=== PATIENT | male | born 1955 | race American Indian/Alaskan Native ===

== ENCOUNTER 2017-03-16 22:37 | Emergency (ER) | payer MEDICARE ==
[2017-03-16] MEDS ORDERED: NORCO 5/325 PO ONE (22:48)
[2017-03-16 22:49] VITALS: BP 165/95
[2017-03-16] MEDS ORDERED: BOOSTRIX IM ONE (22:49)
--- NOTE | 2017-03-16 22:52 | Emergency Department Report ---
ED Fall HPI - General Stated Complaint: NECK PAIN/headache Time Seen by Provider: 03/16/17 22:47 Source: patient - History of Present Illness Initial Comments: 62 -year-old male with past medical history hypertension and coronary artery disease brought in by EMS for headache and neck pain. Patient states 3 hours prior to ED arrival, he had a ground-level fall secondary to mechanical fall- he tripped on a gate. Patient states when he fell he did land on his head and initially he had no headache or neck pain however hours later he developed dull pain that was constant and worse with movement of his neck, improved with keeping his neck still. Patient denies neurological deficits. Patient denies change in vision. Patient does endorse mild headache and tenderness where there is an abrasion on his forehead. Patient has no pain in his upper or lower extremities. MD Complaint: fall -: Sudden, hour(s) (3) Fall From: standing When Fall Occurred: 1-3 hours [employer] Fall Witnessed: yes, by family Place Fall Occurred: street Loss of Consciousness: none Prolonged Down Time?: no Symptoms Prior to Fall: none Location: head, neck Severity scale (0 -10): 4 Quality: dull Context: tripped/slipped Associated Symptoms: headache, neck pain. denies: numbness, weakness, chest paint, shortness of breath, abdominal pain, hematuria, unable to walk, lightheaded, vertigo, confusion - Related Data Home Medications Medication Instructions Recorded Confirmed Last Taken Clopidogrel [Plavix] 75 mg PO QDAY 04/14/16 04/14/16 Unknown Lisinopril [Zestril TAB] 20 mg PO QDAY 04/14/16 04/14/16 Unknown Metoprolol Tartrate [Lopressor] 50 mg PO DAILY 04/14/16 04/14/16 Unknown Simvastatin [Zocor TAB] 20 mg PO QHS 04/14/16 04/14/16 Unknown Tamsulosin [Flomax] 0.4 mg PO QDAY 04/14/16 04/14/16 Unknown Previous Rx's Medication Instructions Recorded Last Taken Type Xarelto 20 mg PO QDAY #7 04/15/16 Unknown Rx glipiZIDE [Glucotrol] 10 mg PO BID #60 tablet 04/15/16 Unknown Rx Tamsulosin [Flomax] 0.4 mg PO QDAY #20 cap 03/17/17 Unknown Rx traMADol [Ultram] 50 mg PO Q6HR PRN #20 tablet 03/17/17 Unknown Rx Allergies Allergy/AdvReac Type Severity Reaction Status Date / Time metformin Allergy Headache Verified 06/28/15 02:39 ED Review of Systems ROS: Stated complaint: NECK PAIN/BLURRED VISION Other details as noted in HPI Constitutional: denies: chills, fever Eyes: denies: eye pain, eye discharge, vision change ENT: other (neck pain ). denies: ear pain, throat pain Respiratory: denies: cough, shortness of breath, wheezing Cardiovascular: denies: chest pain, palpitations Endocrine: no symptoms reported Gastrointestinal: denies: abdominal pain, nausea, diarrhea Genitourinary: denies: urgency, dysuria Musculoskeletal: denies: back pain, joint swelling, arthralgia Skin: other (abraison ). denies: rash, lesions Neurological: headache. denies: weakness, numbness, paresthesias, confusion, abnormal gait, vertigo Psychiatric: denies: anxiety, depression Hematological/Lymphatic: denies: easy bleeding, easy bruising ED Past Medical Hx - Past Medical History Hx Hypertension: Yes Hx Heart Attack/AMI: Yes Hx Congestive Heart Failure: Yes Hx Diabetes: Yes Hx Deep Vein Thrombosis: Yes Hx Asthma: Yes Hx COPD: Yes Hx HIV: No Additional medical history: Glaucoma, DVT Right Calf - Surgical History Hx Coronary Stent: Yes (for blood clot in heart valve) Additional Surgical History: Coronary stent 2 years ago, right leg surgery; right knee replacement and right hip replacement - Social History Smoking Status: Never Smoker - Medications Home Medications: Home Medications Medication Instructions Recorded Confirmed Last Taken Type Clopidogrel [Plavix] 75 mg PO QDAY 04/14/16 04/14/16 Unknown History Lisinopril [Zestril TAB] 20 mg PO QDAY 04/14/16 04/14/16 Unknown History Metoprolol Tartrate [Lopressor] 50 mg PO DAILY 04/14/16 04/14/16 Unknown History Simvastatin [Zocor TAB] 20 mg PO QHS 04/14/16 04/14/16 Unknown History Tamsulosin [Flomax] 0.4 mg PO QDAY 04/14/16 04/14/16 Unknown History Xarelto 20 mg PO QDAY #7 04/15/16 Unknown Rx glipiZIDE [Glucotrol] 10 mg PO BID #60 tablet 04/15/16 Unknown Rx Tamsulosin [Flomax] 0.4 mg PO QDAY #20 cap 03/17/17 Unknown Rx traMADol [Ultram] 50 mg PO Q6HR PRN #20 tablet 03/17/17 Unknown Rx ED Physical Exam - General General appearance: alert, in no apparent distress - Head Head exam: Present: normocephalic, other (pt has small abraison in between eyebrows ) - Eye Eye exam: Present: normal appearance, PERRL, EOMI - ENT ENT exam: Present: normal orophraynx, mucous membranes dry, mucous membranes moist - Neck Neck exam: Present: normal inspection, tenderness (diffuse c spine tenderness ) , other (no carotid bruit, no thrills ) - Respiratory Respiratory exam: Present: normal lung sounds bilaterally. Absent: respiratory distress, wheezes, rales, chest wall tenderness, decreased breath sounds - Cardiovascular Cardiovascular Exam: Present: regular rate, normal rhythm. Absent: systolic murmur, diastolic murmur, rubs, gallop - GI/Abdominal GI/Abdominal exam: Present: soft, normal bowel sounds - Rectal Rectal exam: Present: deferred - Extremities Exam Extremities exam: Present: normal inspection, full ROM, tenderness, normal capillary refill - Back Exam Back exam: Present: normal inspection - Neurological Exam Neurological exam: Present: alert, oriented X3, CN II-XII intact (patient AAO 4 , I light of 5 bilateral upper and lower extremity strength, intact sensation all extremities, normal finger to nose exam GCS 15) - Psychiatric Psychiatric exam: Present: normal affect, normal mood - Skin Skin exam: Present: warm, dry, intact, normal color. Absent: rash ED Course Vital Signs 03/16/17 03/16/17 22:48 23:05 Temperature 98.4 F Pulse Rate 82 Respiratory 19 18 Rate Blood Pressure 165/95 [Left] O2 Sat by Pulse 100 Oximetry - Reevaluation(s) Reevaluation #1: 03/16/17 22:55 Patient resting comfortably agrees to imaging of his head and C-spine. Reevaluation #2: 03/17/17 00:54 Patient resting comfortably ED Medical Decision Making - Radiology Data Radiology results: report reviewed, image reviewed CT brain with and without contrast: There is no evidence of acute intracranial process. Minimal atrophy and small vessel changes are noted. DR Witt Chief cervical spine: No evidence of acute fracture or dislocation of the cervical spine. Dr witt - Medical Decision Making [id number] male history of hypertension, coronary artery disease presenting to the ED status post mechanical ground level fall. patient denies syncopal episode. 1) Concussion CT head negative, will dc pt with concussion information and PCP follow up 2) cervical sprain pt Cervical spine negative, his collar removed and his pain has improved, I have low suspicion for significant Ligamentous sprain. Patient agrees he is stable to discharge home. Repeat neurological exam patient is AAOX4, steady gait, bilateral upper and lower extremity strength , soft abdomen. He verbalized understanding of return precautions as no questions. - Differential Diagnosis ICH, cervical spine fracture, carotid artery dissection Critical Care Time: No Critical care attestation.: If time is entered above; I have spent that time in minutes in the direct care of this critically ill patient, excluding procedure time. ED Disposition Clinical Impression: Concussion, Fall, Cervical sprain, Forehead abrasion Disposition: DC-01 TO HOME OR SELFCARE Is pt being admited?: No Does the pt Need Aspirin: No Condition: Stable Instructions: Concussion (ED), Minor Head Injury (ED) Prescriptions: Tamsulosin [Flomax] 0.4 mg PO QDAY #20 cap traMADol [Ultram] 50 mg PO Q6HR PRN #20 tablet PRN Reason: Pain Referrals: PRIMARY CARE, [Primary Care Provider] - 3-5 Days VICENTE MONTOYA MD [Staff Physician] - 2-3 Days ADDY BYNUM MD [Referring] - 2-3 Days
--- NOTE | 2017-03-16 23:47 | Cat Scan Report ---
FINAL REPORT PROCEDURE: CT CERVICAL SPINE WO CON TECHNIQUE: Computerized tomography of the cervical spine was performed from the skull base to T1 without contrast material. HISTORY: fall, hematoma, H/A, blurred vision COMPARISON: No prior studies are available for comparison. FINDINGS: The alignment of the vertebral segments is normal. The heights of the vertebral bodies and the disc spaces are maintained. No acute fracture dislocation. Spinal canal is adequate at all levels. The visualized portion of the airway is patent IMPRESSION: No evidence of acute fracture or dislocation of the cervical spine..
--- NOTE | 2017-03-17 00:16 | Cat Scan Report ---
FINAL REPORT PROCEDURE: CT HEAD/BRAIN WO CON TECHNIQUE: Computerized tomography of the head was performed without contrast material. HISTORY: fall, hematoma, H/A, blurred vision COMPARISON: No prior studies are available for comparison. FINDINGS: Skull and scalp: Normal. Paranasal sinuses: Normal. Ventricles and subarachnoid spaces: Normal. Cerebrum: No evidence of hemorrhage, acute infarction or mass. Minimal atrophy and slight periventricular deep white matter changes are noted. Old lacunar infarctions of the left basal ganglia are noted.. Cerebellum and brainstem: No evidence of hemorrhage, acute infarction or mass. Vasculature: Normal. Comments: None. IMPRESSION: There is no evidence of an acute intracranial process. Minimal atrophy and small vessel changes are noted.
== END 2017-03-17 01:19 | disposition home or self-care (01) ==
LOC: ED 22:37
DX: S06.0X9A Concussion with loss of consciousness of unspecified duration, initial encounter (principal); S00.81XA Abrasion of other part of head, initial encounter; Y99.9 Unspecified external cause status; I10 Essential (primary) hypertension; I25.2 Old myocardial infarction; I50.9 Heart failure, unspecified; E11.9 Type 2 diabetes mellitus without complications; J45.909 Unspecified asthma, uncomplicated; J44.9 Chronic obstructive pulmonary disease, unspecified; S16.1XXA Strain of muscle, fascia and tendon at neck level, initial encounter; W01.0XXA Fall on same level from slipping, tripping and stumbling without subsequent striking against object, initial encounter; Y93.9 Activity, unspecified; Y92.9 Unspecified place or not applicable
CPT/HCPCS: 70450; 72125; 90471; 90715

== ENCOUNTER 2017-05-28 08:52 | Emergency (ER) | payer MEDICARE ==
[2017-05-28 09:08] VITALS: BP 167/89
--- NOTE | 2017-05-28 09:24 | Emergency Department Report ---
Chief Complaint: Extremity Injury, Lower Stated Complaint: SWELLING IN LEGS Time Seen by Provider: 05/28/17 09:24 - HPI History of Present Illness: Patient here reports swelling of legs FEET. He denies any pain. Denies any chest pain. He said he gets short of breath from time to time on exertion but this is not new. Patient also reports that he is out of his Plavix and will need a refill. He has a history of ME and congestive heart failure, asthma, COPD, DVT, diabetes, hypertension. He had 2 stents 2 years ago and also had blood clots in his heart valve. Denies any nausea or vomiting. Patient had previous swelling in that related to congestive heart failure in the past. - ROS Review of Systems: All systems are negative unless stated in HPI above - Exam Vital Signs: Vital Signs 05/28/17 09:06 Temperature 97.8 F Pulse Rate 72 Respiratory 16 Rate Blood Pressure 167/89 O2 Sat by Pulse 99 Oximetry Physical Exam: Gen.: This is a 61-year-old male in no acute distress and nontoxic in appearance. Cardiovascular: S1-S2. Regular rate and rhythm. Extremity: Noted swelling to both feet, +2 pedal pulses. No neurovascular compromise. MSE screening note: Focused history and physical exam performed. Due to findings the following was ordered:SEE MDM ED Medical Decision Making - Medical Decision Making MDM: Patient screened by provider in triage area. Appropriate protocol initiated and patient to be seen in main ED PROVIDER ED Disposition for MSE Condition: Stable
--- NOTE | 2017-05-28 10:05 | XRay Report ---
ROUTINE CHEST, TWO VIEWS: HISTORY: Shortness of breath. The trachea, heart, mediastinal contour, lung rodriguez and bony thorax are unremarkable. IMPRESSION: Unremarkable chest x-ray. No significant change since 12/14/15.
[2017-05-28 10:17] LABS: Alanine Aminotransferase 9 units/L (7-56); Albumin 3.7 g/dL (3.9-5); Alkaline Phosphatase 78 units/L (35-129); Hematocrit 46.8 % (35.5-45.6); Hemoglobin 15.3 gm/dl (11.8-15.2); Mean Corpuscular HGB Conc 33 % (32-34); Mean Corpuscular Hemoglobin 28 pg (28-32); Mean Corpuscular Volume 85 fl (84-94); Platelet Count 187 K/mm3 (140-440); Red Blood Count 5.48 M/mm3 (3.65-5.03); Red Cell Distribution Width 15.5 % (13.2-15.2); Total Protein 7.5 g/dL (6.3-8.2); White Blood Count 7.3 K/mm3 (4.5-11.0)
[2017-05-28 10:29] LABS: Bilirubin,Direct < 0.2 mg/dL (0-0.2)
[2017-05-28 10:34] LABS: Anion Gap 18 mmol/L; Blood Urea Nitrogen 7 mg/dL (9-20); Calcium 8.8 mg/dL (8.4-10.2); Carbon Dioxide 23 mmol/L (22-30); Chloride 99.2 mmol/L (98-107); Glucose 188 mg/dL (75-100); Potassium 3.7 mmol/L (3.6-5.0); Sodium 136 mmol/L (137-145)
== END 2017-05-28 15:35 | disposition left against medical advice (07) ==
LOC: ED 08:52
DX: R60.0 Localized edema (principal); Z53.21 Procedure and treatment not carried out due to patient leaving prior to being seen by health care provider
CPT/HCPCS: 36415; 71020; 80048; 80074; 83880; 84484; 85025

== ENCOUNTER 2018-02-13 00:42 | Emergency (ER) | payer MEDICARE ==
[2018-02-13 02:33] VITALS: BP 163/93
[2018-02-13] MEDS ORDERED: ASPIRIN PO ONE (02:34)
[2018-02-13 03:32] LABS: Basophils # (Auto) 0.1 K/mm3 (0.0-0.1); Eosinophils # (Auto) 0.2 K/mm3 (0.0-0.4); Eosinophils % (Auto) 3.1 % (0.0-4.3); Hematocrit 46.2 % (35.5-45.6); Hemoglobin 15.3 gm/dl (11.8-15.2); Lymphocytes # (Auto) 2.5 K/mm3 (1.2-5.4); Lymphocytes % (Auto) 37.1 % (13.4-35.0); Mean Corpuscular HGB Conc 33 % (32-34); Mean Corpuscular Hemoglobin 29 pg (28-32); Mean Corpuscular Volume 87 fl (84-94); Monocytes # (Auto) 0.5 K/mm3 (0.0-0.8); Monocytes % (Auto) 7.8 % (0.0-7.3); Platelet Count 198 K/mm3 (140-440); Red Blood Count 5.29 M/mm3 (3.65-5.03); Red Cell Distribution Width 14.7 % (13.2-15.2)
[2018-02-13 03:49] LABS: BUN/Creatinine Ratio 15; Blood Urea Nitrogen 15 mg/dL (9-20); Calcium 8.7 mg/dL (8.4-10.2); Hemolysis Index 16
== END 2018-02-13 06:55 | disposition left against medical advice (07) ==
LOC: ED 00:42
DX: R60.0 Localized edema (principal); R07.9 Chest pain, unspecified; J45.909 Unspecified asthma, uncomplicated; E11.9 Type 2 diabetes mellitus without complications; I25.2 Old myocardial infarction; I10 Essential (primary) hypertension; Z86.718 Personal history of other venous thrombosis and embolism; Z53.21 Procedure and treatment not carried out due to patient leaving prior to being seen by health care provider
CPT/HCPCS: 36415; 80048; 84484; 85025; 93005; 93010

== ENCOUNTER 2019-09-28 06:50 | Emergency (ER) | payer MEDICAID, MEDICARE ==
[2019-09-28 07:52] LABS: Basophils # (Auto) 0.1 K/mm3 (0.0-0.1); Basophils % (Auto) 0.7 % (0.0-1.8); Eosinophils # (Auto) 0.2 K/mm3 (0.0-0.4); Eosinophils % (Auto) 2.8 % (0.0-4.3); Hematocrit 39.2 % (35.5-45.6); Hemoglobin 13.4 gm/dl (11.8-15.2); Lymphocytes # (Auto) 2.8 K/mm3 (1.2-5.4); Lymphocytes % (Auto) 32.2 % (13.4-35.0); Mean Corpuscular HGB Conc 34 % (32-34); Mean Corpuscular Volume 86 fl (84-94); Monocytes # (Auto) 0.6 K/mm3 (0.0-0.8); Platelet Count 222 K/mm3 (140-440); Red Blood Count 4.56 M/mm3 (3.65-5.03); Red Cell Distribution Width 14.8 % (13.2-15.2)
[2019-09-28 08:09] LABS: Alanine Aminotransferase 11 units/L (7-56); Albumin 3.4 g/dL (3.9-5); BUN/Creatinine Ratio 15; Blood Urea Nitrogen 16 mg/dL (9-20); Calcium 9.2 mg/dL (8.4-10.2); Hemolysis Index 20
[2019-09-28 08:15] VITALS: BP 152/89
[2019-09-28 09:31] LABS: Bacteria,Urine 1+ /HPF (Negative); Bilirubin,Urine NEG (Negative); Blood,Urine MOD (Negative); Color,Urine Straw (Yellow); Urobilinogen,Urine < 2.0 mg/dL (<2.0)
== END 2019-09-28 10:00 | disposition left against medical advice (07) ==
LOC: ED 06:50
DX: R73.9 Hyperglycemia, unspecified (principal); Z53.21 Procedure and treatment not carried out due to patient leaving prior to being seen by health care provider
CPT/HCPCS: 36415; 80053; 81001; 82962; 85025; 87086

== ENCOUNTER 2021-12-10 05:00 | Inpatient (IN) | payer MEDICARE, OTHER ==
--- NOTE | 2021-12-10 06:31 | Emergency Department Report ---
ED General Adult HPI - General Chief complaint: Hyperglycemia Stated complaint: HIGH BLOOD SUGAR Time Seen by Provider: 12/10/21 06:13 Source: patient, EMS ( EMS documentation not available at time of chart dictation ), RN notes reviewed, old records reviewed Mode of arrival: Stretcher Limitations: Altered Mental Status, Physical Limitation - History of Present Illness Initial comments: The patient is a 66-year-old gentleman. He has a past medical history of right transmetatarsal amputation, left foot surgery, currently with surgical dressing in place, thinks that his surgery was performed at [facility] but is not sure. He also has a history of peripheral artery disease, hypertension, diabetes hypertension, high cholesterol, and previous he has been on Xarelto previously for history of DVT. He presents to the ER today with a complaint of weakness and urinating frequently. He denies physical pain. He reports that he has previously been in rehab for the past 6 weeks, but he is not sure where. He does not know the name of the surgeon who performed his left foot surgery, and he is not certain which hospital his surgery was performed. It is unclear who called 911. The patient is awake, follows commands, but is confused. The patient denies headache, neck pain, chest pain, abdominal pain, shortness of breath. He does not know who the president is, and believes that the year is 1999. -: unknown - Related Data Home Medications Medication Instructions Recorded Confirmed Last Taken Clopidogrel [Plavix] 75 mg PO QDAY 04/14/16 04/14/16 Unknown Metoprolol Tartrate [Lopressor] 50 mg PO DAILY 04/14/16 04/14/16 Unknown Simvastatin (Nf) [Zocor TAB] 20 mg PO QHS 04/14/16 04/14/16 Unknown Tamsulosin [Flomax] 0.4 mg PO QDAY 04/14/16 04/14/16 Unknown lisinopriL [Zestril TAB] 20 mg PO QDAY 04/14/16 04/14/16 Unknown Previous Rx's Medication Instructions Recorded Last Taken Type Xarelto 20 mg PO QDAY #7 04/15/16 Unknown Rx glipiZIDE [Glucotrol] 10 mg PO BID #60 tablet 04/15/16 Unknown Rx Tamsulosin [Flomax] 0.4 mg PO QDAY #20 cap 03/17/17 Unknown Rx traMADoL [Ultram] 50 mg PO Q6HR PRN #20 tablet 03/17/17 Unknown Rx Allergies Allergy/AdvReac Type Severity Reaction Status Date / Time metformin Allergy Headache Verified 02/13/18 02:33 ED Review of Systems ROS: Stated complaint: HIGH BLOOD SUGAR Other details as noted in HPI Comment: Unobtainable due to pts medical conditions Constitutional: malaise, weakness Genitourinary: frequency Neurological: weakness, confusion ED Past Medical Hx - Past Medical History Previous Medical History?: Yes Hx Hypertension: Yes Hx Heart Attack/AMI: Yes Hx Congestive Heart Failure: Yes Hx Diabetes: Yes Hx Deep Vein Thrombosis: Yes Hx Asthma: Yes Hx COPD: Yes Hx HIV: No Additional medical history: Glaucoma, DVT Right Calf - Surgical History Past Surgical History?: Yes Hx Coronary Stent: Yes (for blood clot in heart valve) Additional Surgical History: Coronary stent 2 years ago, right leg surgery; right knee replacement and right hip replacement - Social History Smoking Status: Never Smoker Substance Use Type: None - Medications Home Medications: Home Medications Medication Instructions Recorded Confirmed Last Taken Type Clopidogrel [Plavix] 75 mg PO QDAY 04/14/16 04/14/16 Unknown History Metoprolol Tartrate [Lopressor] 50 mg PO DAILY 04/14/16 04/14/16 Unknown History Simvastatin (Nf) [Zocor TAB] 20 mg PO QHS 04/14/16 04/14/16 Unknown History Tamsulosin [Flomax] 0.4 mg PO QDAY 04/14/16 04/14/16 Unknown History lisinopriL [Zestril TAB] 20 mg PO QDAY 04/14/16 04/14/16 Unknown History Xarelto 20 mg PO QDAY #7 04/15/16 Unknown Rx glipiZIDE [Glucotrol] 10 mg PO BID #60 tablet 04/15/16 Unknown Rx Tamsulosin [Flomax] 0.4 mg PO QDAY #20 cap 03/17/17 Unknown Rx traMADoL [Ultram] 50 mg PO Q6HR PRN #20 tablet 03/17/17 Unknown Rx ED Physical Exam - General Limitations: Altered Mental Status, Physical Limitation General appearance: other (The patient is awake) - Head Head exam: Present: atraumatic, normocephalic - Eye Eye exam: Present: EOMI. Absent: normal appearance (Opacified right cord) - ENT ENT exam: Present: mucous membranes dry, normal external ear exam - Neck Neck exam: Present: normal inspection, full ROM. Absent: tenderness, meningismus - Respiratory Respiratory exam: Present: decreased breath sounds. Absent: respiratory distress, wheezes, rales, rhonchi, stridor - Cardiovascular Cardiovascular Exam: Present: regular rate, normal rhythm, normal heart sounds. Absent: bradycardia, tachycardia, irregular rhythm, systolic murmur, diastolic murmur, rubs, gallop - GI/Abdominal GI/Abdominal exam: Present: soft. Absent: distended, tenderness, guarding, rebound, rigid, pulsatile mass - exam: Present: normal inspection - Extremities Exam Extremities exam: Present: pedal edema, other (2+ femoral pulses noted bilaterally. 2+ radial pulses noted bilaterally). Absent: normal inspection (On the right foot, there is evidence of healed right transmetatarsal amputation. There is chronic venous stasis changes noted in the bilateral lower extremities. On the left lateral foot, surgical wound is noted, with some discharge, and erythematous tissue. Dressing is applied, and smells foul.) - Back Exam Back exam: Present: normal inspection. Absent: tenderness, CVA tenderness (R), CVA tenderness (L), paraspinal tenderness, vertebral tenderness - Neurological Exam Neurological exam: Present: altered, other (The patient is awake. The patient was 4 extremities. The patient follows commands. There is no facial droop) - Psychiatric Psychiatric exam: Present: flat affect - Skin Skin exam: Present: warm, dry, intact, normal color. Absent: rash ED Course Vital Signs 12/10/21 12/10/21 12/10/21 05:50 05:55 06:15 Temperature 97.7 F Pulse Rate 93 H 95 H Respiratory 18 18 18 Rate Blood Pressure 177/97 Blood Pressure 180/70 [Left] O2 Sat by Pulse 96 96 100 Oximetry 12/10/21 06:31 Temperature Pulse Rate 78 Respiratory 12 Rate Blood Pressure 185/98 Blood Pressure [Left] O2 Sat by Pulse 98 Oximetry - Reevaluation(s) Reevaluation #1: 12/10/21 08:31 Differential diagnosis, including not limited to: Pneumonia, UTI, DKA, hyperglycemia, cellulitis, osteomyelitis, intracranial hemorrhage Assessment and plan: 66-year-old gentleman, who is afebrile with hypertension, presenting with weakness, confusion, what appears to be a left foot infection. Place patient on client relationship consultant. Obtain x-ray of the chest, and x-ray of the left foot. Obtain appropriate laboratory studies, urinalysis and EKG. Obtain noncontrast CT scan of the brain. Patient indicated that he has been in rehab for about 6 weeks. We do not have paperwork from rehab, or paperwork from where he received his prior surgery. Patient is not clear as to who or where his surgery is performed. In the event, we do have the capability of treating this patient here, he does not require transfer for services not available at this facility. X-ray of the foot suggested left-sided osteomyelitis. Start fluids and antibiotics. Awaiting callback from general surgery. Awaiting laboratory studies and CT scan of the brain. Admit this patient to the medical service once initial diagnostics have resulted. 12/10/21 08:[address] scan of the brain interpreted by myself is negative for bleed. Patient found to have glucose of 532 with anion gap of 17, venous pH is not acidotic. IV fluids ordered, insulin ordered. Hospital physician, Dr. Yvan Peterson to admit patient to the medical service. General surgery, Dr. Garcia, to follow in consultation, please see consultative note 12/10/21 08:46 Reevaluation #2: 12/10/21 08:45 Elevated troponin is likely a type II troponin leak - Consultations Consultation #1: 12/10/21 08:39 I discussed the patient's history, physical, laboratory studies imaging studies and clinical impression with general surgeon on-call, Dr. Garcia. General surgery will follow in consultation and make recommendations. Awaiting glucose. ED Medical Decision Making - Lab Data Result diagrams: 12/10/21 06:53 12/10/21 06:53 Vital Signs 12/10/21 12/10/21 12/10/21 05:50 05:55 06:15 Temperature 97.7 F Pulse Rate 93 H 95 H Respiratory 18 18 18 Rate Blood Pressure 177/97 Blood Pressure 180/70 [Left] O2 Sat by Pulse 96 96 100 Oximetry 12/10/21 06:31 Temperature Pulse Rate 78 Respiratory 12 Rate Blood Pressure 185/98 Blood Pressure [Left] O2 Sat by Pulse 98 Oximetry Lab Results 12/10/21 12/10/21 12/10/21 Range/Units 06:53 06:53 06:53 WBC 8.7 (4.5-11.0) K/mm3 RBC 4.63 (3.65-5.03) M/mm3 Hgb 11.9 (11.8-15.2) gm/dl Hct 38.0 (35.5-45.6) % MCV 82 L (84-94) fl MCH 26 L (28-32) pg MCHC 31 L (32-34) % RDW 19.1 H (13.2-15.2) % Plt Count 391 (140-440) K/mm3 Lymph % (Auto) 20.6 (13.4-35.0) % [place] % (Auto) 5.2 (0.0-7.3) % Eos % (Auto) 0.1 (0.0-4.3) % Baso % (Auto) 0.4 (0.0-1.8) % Lymph # (Auto) 1.8 (1.2-5.4) K/mm3 [place] # (Auto) 0.5 (0.0-0.8) K/mm3 Eos # (Auto) 0.0 (0.0-0.4) K/mm3 Baso # (Auto) 0.0 (0.0-0.1) K/mm3 Seg Neutrophils % 73.7 H (40.0-70.0) % Seg Neutrophils # 6.4 (1.8-7.7) K/mm3 ESR 37 (0-20) mm/Hr PT 13.7 (12.2-14.9) Sec. INR 0.95 (0.87-1.13) VBG pH 7.455 H (7.320-7.420) Lactic Acid (0.7-2.0) mmol/L 12/10/21 Range/Units 06:53 WBC (4.5-11.0) K/mm3 RBC (3.65-5.03) M/mm3 Hgb (11.8-15.2) gm/dl Hct (35.5-45.6) % MCV (84-94) fl MCH (28-32) pg MCHC (32-34) % RDW (13.2-15.2) % Plt Count (140-440) K/mm3 Lymph % (Auto) (13.4-35.0) % [place] % (Auto) (0.0-7.3) % Eos % (Auto) (0.0-4.3) % Baso % (Auto) (0.0-1.8) % Lymph # (Auto) (1.2-5.4) K/mm3 [place] # (Auto) (0.0-0.8) K/mm3 Eos # (Auto) (0.0-0.4) K/mm3 Baso # (Auto) (0.0-0.1) K/mm3 Seg Neutrophils % (40.0-70.0) % Seg Neutrophils # (1.8-7.7) K/mm3 ESR (0-20) mm/Hr PT (12.2-14.9) Sec. INR (0.87-1.13) VBG pH (7.320-7.420) Lactic Acid 1.80 (0.7-2.0) mmol/L - EKG Data -: EKG Interpreted by Sc EKG shows normal: sinus rhythm Rate: normal - EKG Data Interpretation: unchanged when compared t (January 2018) 12/10/21 08:33 The EKG is interpreted at 0700 Sinus rhythm, 94 bpm. There is a left axis deviation, with a left anterior fascicular block. Nonspecific ST abnormalities in the inferior leads, and high lateral leads. There is motion artifact. This is an abnormal EKG. The EKG today does not appear to be consistent with a STEMI - Radiology Data Radiology results: report reviewed, image reviewed CHEST 1 VIEW INDICATION / CLINICAL INFORMATION: ams hyperglycmeia. COMPARISON: Chest x-ray 05/29/2017 FINDINGS: SUPPORT DEVICES: None. HEART / MEDIASTINUM: No significant abnormality. LUNGS / PLEURA: The lungs are clear. No pneumothorax. BONES: No significant osseous abnormality. ADDITIONAL FINDINGS: No significant additional findings. IMPRESSION: 1. No active cardiopulmonary disease. Signer Name: Raheem Rivera II, MD Signed: 12/10/2021 6:47 AM Workstation Name: [id number] LEFT FOOT 3 VIEWS. INDICATION / CLINICAL INFORMATION: left foot wound COMPARISON: None available. FINDINGS: Postoperative changes are present with amputation of the left fifth metatarsal. Permeative appearance of the distal fourth metatarsal and cortical thinning involving the head of the third metatarsal is present with erosive appearance of the fourth metatarsophalangeal joint noted possibly in part surgical. IMPRESSION: 1. Postoperative changes from fifth ray amputation. Osteomyelitis involving the fourth metatarsophalangeal joint and/or postsurgical changes are suggested. Signer Radha john: Raheem Rivera II, MD Signed: 12/10/2021 6:47 AM Workstation Name: [id number] CT HEAD WITHOUT CONTRAST INDICATION / CLINICAL INFORMATION: ams. TECHNIQUE: All CT scans at this location are performed using CT dose reduction for ALARA by means of automated exposure control. COMPARISON: CT dated 03/16/17 FINDINGS: HEMORRHAGE: None. EXTRA-AXIAL SPACES: Normal in size and morphology for the patient's age. VENTRICULAR SYSTEM: Normal in size and morphology for the patient's age. CEREBRAL PARENCHYMA: No significant abnormality. No acute territorial infarct. MIDLINE SHIFT / HERNIATION: None. CEREBELLUM / BRAINSTEM: No significant abnormality. ORBITS: Left cataract surgery. SOFT TISSUES: No significant abnormality. SKULL: No significant abnormality. PARANASAL SINUSES / MASTOID AIR CELLS: Normal as visualized. ADDITIONAL FINDINGS: None. IMPRESSION: 1. No acute intracranial abnormality. No significant change. Signer Name: Titus Conroy MD Signed: 12/10/2021 8:10 AM Workstation Name: [id number] Critical Care Time: Yes Critical care time in (mins) excluding proc time.: 35 Critical care attestation.: If time is entered above; I have spent that time in minutes in the direct care of this critically ill patient, excluding procedure time. ED Disposition Clinical Impression: Acute encephalopathy, Wound of left foot, Hyperglycemia, UTI (urinary tract infection) Disposition: 09 ADMITTED INPATIENT Is pt being admited?: Yes Does the pt Need Aspirin: No Condition: Fair
[2021-12-10 07:16] LABS: Basophils % (Auto) 0.4 % (0.0-1.8); Eosinophils % (Auto) 0.1 % (0.0-4.3); Hemoglobin 11.9 gm/dl (11.8-15.2); Lymphocytes # (Auto) 1.8 K/mm3 (1.2-5.4); Lymphocytes % (Auto) 20.6 % (13.4-35.0); Mean Corpuscular HGB Conc 31 % (32-34); Mean Corpuscular Volume 82 fl (84-94); Monocytes # (Auto) 0.5 K/mm3 (0.0-0.8); Monocytes % (Auto) 5.2 % (0.0-7.3); Platelet Count 391 K/mm3 (140-440); Red Blood Count 4.63 M/mm3 (3.65-5.03); Red Cell Distribution Width 19.1 % (13.2-15.2)
[2021-12-10 07:26] LABS: INR 0.95 (0.87-1.13)
[2021-12-10 07:38] LABS: Erythrocyte Sedimentation Rate 37 mm/Hr (0-20)
--- NOTE | 2021-12-10 07:51 | XRay Report ---
CHEST 1 VIEW INDICATION / CLINICAL INFORMATION: ams hyperglycmeia. COMPARISON: Chest x-ray 05/29/2017 FINDINGS: SUPPORT DEVICES: None. HEART / MEDIASTINUM: No significant abnormality. LUNGS / PLEURA: The lungs are clear. No pneumothorax. BONES: No significant osseous abnormality. ADDITIONAL FINDINGS: No significant additional findings. IMPRESSION: 1. No active cardiopulmonary disease. Signer Name: Raheem Rivera II, MD Signed: 12/10/2021 7:47 AM Workstation Name: [id number]
--- NOTE | 2021-12-10 07:51 | XRay Report ---
LEFT FOOT 3 VIEWS. INDICATION / CLINICAL INFORMATION: left foot wound COMPARISON: None available. FINDINGS: Postoperative changes are present with amputation of the left fifth metatarsal. Permeative appearance of the distal fourth metatarsal and cortical thinning involving the head of the third metatarsal is present with erosive appearance of the fourth metatarsophalangeal joint noted possibly in part surgic al. IMPRESSION: 1. Postoperative changes from fifth ray amputation. Osteomyelitis involving the fourth metatarsophala ngeal joint and/or postsurgical changes are suggested. Signer Name: Raheem Rivera II, MD Signed: 12/10/2021 7:47 AM Workstation Name: [id number]
[2021-12-10] MEDS ORDERED: SODIUM CHLORIDE 0.9% 1000 ML 1,000 ML IV ONE ×2 (08:28→08:44)
[2021-12-10] MEDS ORDERED: cefTRIAXone/NS 2 GM/100 ML 2 GM/100 ML BAG IV ONE (08:28)
[2021-12-10 08:35] LABS: Albumin 3.3 g/dL (3.9-5); BUN/Creatinine Ratio 15; Blood Urea Nitrogen 15 mg/dL (9-20); Calcium 10.2 mg/dL (8.4-10.2); Hemolysis Index 1
[2021-12-10 08:41] LABS: Alanine Aminotransferase < 5 units/L (7-56)
[2021-12-10] MEDS ORDERED: INSULIN REGULAR, HUMAN 100 UNITS/1 ML IV ONE (08:42)
[2021-12-10 08:45] LABS: C-Reactive Protein 8.1 mg/dL (0.00-1.30)
[2021-12-10 08:46] LABS: Chol/HDL Ratio 4.48 %
[2021-12-10 09:00] LABS: Bilirubin,Urine NEG (Negative); Blood,Urine SM (Negative); Color,Urine Yellow (Yellow); Sperm,Urine 1+ /HPF (NP); Urobilinogen,Urine < 2.0 mg/dL (<2.0)
[2021-12-10 09:03] LABS: WBC,Urine > 182.0 /HPF (0.0-6.0)
--- NOTE | 2021-12-10 09:15 | Cat Scan Report ---
CT HEAD WITHOUT CONTRAST INDICATION / CLINICAL INFORMATION: ams. TECHNIQUE: All CT scans at this location are performed using CT dose reduction for ALARA by means of automated exposure control. COMPARISON: CT dated 03/16/17 FINDINGS: HEMORRHAGE: None. EXTRA-AXIAL SPACES: Normal in size and morphology for the patient's age. VENTRICULAR SYSTEM: Normal in size and morphology for the patient's age. CEREBRAL PARENCHYMA: No significant abnormality. No acute territorial infarct. MIDLINE SHIFT / HERNIATION: None. CEREBELLUM / BRAINSTEM: No significant abnormality. ORBITS: Left cataract surgery. SOFT TISSUES: No significant abnormality. SKULL: No significant abnormality. PARANASAL SINUSES / MASTOID AIR CELLS: Normal as visualized. ADDITIONAL FINDINGS: None. IMPRESSION: 1. No acute intracranial abnormality. No significant change. Signer Name: Titus Conroy MD Signed: 12/10/2021 9:10 AM Workstation Name: [id number]
--- NOTE | 2021-12-10 09:56 | History and Physical Report ---
History of Present Illness Date of examination: 12/10/21 Date of admission: 12/10/21 Chief complaint: hyperglycemia History of present illness: 66-year-old male with past medical history of peripheral artery disease, hypertension, diabetes mellitus type II, hypertension, high cholesterol, DVT, right transmetatarsal amputation, left foot surgery presumably at [facility], currently with surgical dressing in place presents to the ER with a complaint of weakness and frequency. He denies physical pain. He reports that he has previously been in rehab for the past 6 weeks, but he is not sure where. He does not know the name of the surgeon who performed his left foot surgery, and he is not completely sure which hospital his surgery was performed. The patient does follow commands but is confused. Patient denies any chest pain or shortness of breath. Past History Past Medical History: diabetes, hypertension, hyperlipidemia, other (Peripheral vascular disease) Past Surgical History: Other (Right and left foot surgery) Social history: other (Unable to obtain due to mental status) Family history: other (Unable to obtain due to mental status) Medications and Allergies Allergies Allergy/AdvReac Type Severity Reaction Status Date / Time metformin Allergy Headache Verified 02/13/18 02:33 Home Medications Medication Instructions Recorded Confirmed Last Taken Type Clopidogrel [Plavix] 75 mg PO QDAY 04/14/16 04/14/16 Unknown History Metoprolol Tartrate [Lopressor] 50 mg PO DAILY 04/14/16 04/14/16 Unknown History Simvastatin (Nf) [Zocor TAB] 20 mg PO QHS 04/14/16 04/14/16 Unknown History Tamsulosin [Flomax] 0.4 mg PO QDAY 04/14/16 04/14/16 Unknown History lisinopriL [Zestril TAB] 20 mg PO QDAY 04/14/16 04/14/16 Unknown History Xarelto 20 mg PO QDAY #7 04/15/16 Unknown Rx glipiZIDE [Glucotrol] 10 mg PO BID #60 tablet 04/15/16 Unknown Rx Tamsulosin [Flomax] 0.4 mg PO QDAY #20 cap 03/17/17 Unknown Rx traMADoL [Ultram] 50 mg PO Q6HR PRN #20 tablet 03/17/17 Unknown Rx Active Meds: Active Medications Vancomycin HCl 1,750 mg/ (Sodium Chloride) 535 mls @ 333 mls/hr IV ONCE ONE; Protocol Stop: 12/10/21 11:36 Vancomycin HCl 1,500 mg/ (Sodium Chloride) 530 mls @ 333.333 mls/hr IV Q12H [place] Review of Systems All systems: negative Exam - Physical Exam Narrative exam: Patient noted to be tachypneic at the time of my evaluation with respiratory rate 24 - Constitutional Vitals: Temp Pulse Resp BP Pulse Ox 97.7 F 78 12 185/98 98 12/10/21 05:50 12/10/21 06:31 12/10/21 06:31 12/10/21 06:31 12/10/21 06:31 General appearance: Present: no acute distress, well-nourished - EENT Eyes: Present: PERRL ENT: hearing intact, clear oral mucosa - Neck Neck: Present: supple, normal ROM - Respiratory Respiratory effort: normal Respiratory: bilateral: CTA - Cardiovascular Heart Sounds: Present: S1 & S2. Absent: rub, click - Extremities Extremities: abnormal (On the left lateral foot, surgical wound is noted, with some discharge, and erythematous tissue. Dressing is applied, and smells foul.)) Peripheral Pulses: within normal limits - Abdominal General gastrointestinal: Present: soft, non-tender, non-distended, normal bowel sounds Male genitourinary: Present: normal - Integumentary Integumentary: Present: clear, warm, dry - Musculoskeletal Musculoskeletal: gait normal, strength equal bilaterally - Psychiatric Psychiatric: appropriate mood/affect, intact judgment & insight - Neurologic Neurologic: CNII-XII intact, moves all extremities HEART Score - HEART Score Troponin: Troponin T 0.034 ng/mL (0.00-0.029) H 12/10/21 06:53 Results - Labs CBC & Chem 7: 12/10/21 06:53 12/10/21 06:53 Labs: Laboratory Last Values WBC 8.7 K/mm3 (4.5-11.0) 12/10/21 06:53 RBC 4.63 M/mm3 (3.65-5.03) 12/10/21 06:53 Hgb 11.9 gm/dl (11.8-15.2) 12/10/21 06:53 Hct 38.0 % (35.5-45.6) 12/10/21 06:53 MCV 82 fl (84-94) L 12/10/21 06:53 MCH 26 pg (28-32) L 12/10/21 06:53 MCHC 31 % (32-34) L 12/10/21 06:53 RDW 19.1 % (13.2-15.2) H 12/10/21 06:53 Plt Count 391 K/mm3 (140-440) 12/10/21 06:53 Lymph % (Auto) 20.6 % (13.4-35.0) 12/10/21 06:53 [place] % (Auto) 5.2 % (0.0-7.3) 12/10/21 06:53 Eos % (Auto) 0.1 % (0.0-4.3) 12/10/21 06:53 Baso % (Auto) 0.4 % (0.0-1.8) 12/10/21 06:53 Lymph # (Auto) 1.8 K/mm3 (1.2-5.4) 12/10/21 06:53 [place] # (Auto) 0.5 K/mm3 (0.0-0.8) 12/10/21 06:53 Eos # (Auto) 0.0 K/mm3 (0.0-0.4) 12/10/21 06:53 Baso # (Auto) 0.0 K/mm3 (0.0-0.1) 12/10/21 06:53 Seg Neutrophils % 73.7 % (40.0-70.0) H 12/10/21 06:53 Seg Neutrophils # 6.4 K/mm3 (1.8-7.7) 12/10/21 06:53 ESR 37 mm/Hr (0-20) 12/10/21 06:53 PT 13.7 Sec. (12.2-14.9) 12/10/21 06:53 INR 0.95 (0.87-1.13) 12/10/21 06:53 VBG pH 7.455 (7.320-7.420) H 12/10/21 06:53 Sodium 135 mmol/L (137-145) L 12/10/21 06:53 Potassium 3.8 mmol/L (3.6-5.0) 12/10/21 06:53 Chloride 91.2 mmol/L (98-107) L 12/10/21 06:53 Carbon Dioxide 31 mmol/L (22-30) H 12/10/21 06:53 Anion Gap 17 mmol/L 12/10/21 06:53 BUN 15 mg/dL (9-20) 12/10/21 06:53 Creatinine 1.0 mg/dL (0.8-1.3) 12/10/21 06:53 Estimated GFR > 60 ml/min 12/10/21 06:53 BUN/Creatinine Ratio 15 % 12/10/21 06:53 Glucose 534 mg/dL (75-100) H* 12/10/21 06:53 Lactic Acid 1.80 mmol/L (0.7-2.0) 12/10/21 06:53 Calcium 10.2 mg/dL (8.4-10.2) 12/10/21 06:53 Magnesium 2.10 mg/dL (1.7-2.3) 12/10/21 06:53 Total Bilirubin 0.30 mg/dL (0.1-1.2) 12/10/21 06:53 AST 10 units/L (5-40) 12/10/21 06:53 ALT < 5 units/L (7-56) L 12/10/21 06:53 Alkaline Phosphatase 117 units/L (35-129) 12/10/21 06:53 Total Creatine Kinase 32 units/L (55-170) L 12/10/21 06:53 Troponin T 0.034 ng/mL (0.00-0.029) H 12/10/21 06:53 C-Reactive Protein 8.10 mg/dL (0.00-1.30) H 12/10/21 06:53 Total Protein 9.5 g/dL (6.3-8.2) H 12/10/21 06:53 Albumin 3.3 g/dL (3.9-5) L 12/10/21 06:53 Albumin/Globulin Ratio 0.5 % 12/10/21 06:53 Triglycerides 134 mg/dL (2-149) 12/10/21 06:53 Cholesterol 184 mg/dL (50-199) 12/10/21 06:53 LDL Cholesterol Direct 116 mg/dL (50-130) 12/10/21 06:53 HDL Cholesterol 41 mg/dL (40-59) 12/10/21 06:53 Cholesterol/HDL Ratio 4.48 % 12/10/21 06:53 Urine Color Yellow (Yellow) 12/10/21 Unknown Urine Turbidity Cloudy (Clear) 12/10/21 Unknown Urine pH 6.0 (5.0-7.0) 12/10/21 Unknown Ur Specific [place] 1.020 (1.003-1.030) 12/10/21 Unknown Urine Protein 100 mg/dl mg/dL (Negative) 12/10/21 Unknown Urine Glucose (UA) >=500 mg/dL (Negative) 12/10/21 Unknown Urine Ketones Neg mg/dL (Negative) 12/10/21 Unknown Urine Blood Sm (Negative) 12/10/21 Unknown Urine Nitrite Neg (Negative) 12/10/21 Unknown Urine Bilirubin Neg (Negative) 12/10/21 Unknown Urine Urobilinogen < 2.0 mg/dL (<2.0) 12/10/21 Unknown Ur Leukocyte Esterase Lg (Negative) 12/10/21 Unknown Urine WBC (Auto) > 182.0 /HPF (0.0-6.0) H 12/10/21 Unknown Urine RBC (Auto) 17.0 /HPF (0.0-6.0) 12/10/21 Unknown U Epithel Cells (Auto) 1.0 /HPF (0-13.0) 12/10/21 Unknown Urine WBC Clumps 3+ /HPF 12/10/21 Unknown Urine Yeast (Budding) 1+ /HPF 12/10/21 Unknown Urine Sperm 1+ /HPF (ACTIVITIES THERAPIST) 12/10/21 Unknown Assessment and Plan Assessment and plan: Severe sepsis. Patient meets criteria given the tachycardia, tachypnea and diagnosis of left foot abscess/UTI along with altered mentation. Left foot abscess Diabetes mellitus type 2, uncontrolled UTI Elevated troponin. Type II OH from sepsis Toxic metabolic encephalopathy Peripheral vascular disease Accelerated hypertension Hyperlipidemia History of DVT 12/10/2021. Patient will be admitted and started on IV antibiotics for UTI and left lower extremity abscess. We will consult ID and surgery for further evaluation. Resume home medications for BP and cholesterol. Tight glycemic control to promote wound healing. Patient has elevated troponin which is likely a leak or secondary to type II OH from sepsis. Patient denies any chest pain
[2021-12-10] MEDS ORDERED: VANCOMYCIN 1,750 MG in SODIUM CHLORIDE 0.9% 500 ML 500 ML IV ONE (10:00)
[2021-12-10] MEDS ORDERED: ACETAMINOPHEN 325 MG TAB PO PRN (10:02)
[2021-12-10] MEDS ORDERED: MORPHINE 4 MG/1 ML INJ IV PRN (11:00)
[2021-12-10] MEDS ORDERED: ONDANSETRON 4 MG/2 ML INJ IV PRN (11:00)
[2021-12-10] MEDS ORDERED: VANCOMYCIN PHARMACY TO DOSE IV SCH (11:00)
[2021-12-10] MEDS: PIPERACIL/TAZOBACTA 4.5/NS 100 4.5 GM/100 ML VIAL IV SCH ×3 (12:50→22:24)
[2021-12-10] MEDS ORDERED: METOPROLOL TARTRATE 50 MG TAB PO ONE (14:08)
[2021-12-10] MEDS: HEPARIN 5,000 UNIT/1 ML VIAL SUB-Q SCH ×2 (14:29→22:23)
--- NOTE | 2021-12-10 16:27 | Consultation ---
History of Present Illness Consult date: 12/10/21 Reason for consult: wound care - History of present illness History of present illness: 66 year old male presented to ED with AMS. Surgery consulted to evaluate left foot wound. Pt says he had left fifth toe amputation surgery at [facility] in [place] a month ago and has seen his surgeon 3 times since then, with the last evaluation by him about 4 days ago. Patient says that he had artificial skin grafting done about a week and a half ago, and when the doctor saw him last week he says that it was healing well. Patient says he would like to continue to see that surgeon for further care. Patient denies any pain when the wound is not being manipulated. He denies any fevers or chills. Patient had x-ray of his left foot that showed findings consistent with osteomyelitis versus early postoperative changes. Past History Past Medical History: diabetes, hypertension, hyperlipidemia, other (Peripheral vascular disease) Past Surgical History: Other (Right and left foot surgery) Social history: other (Unable to obtain due to mental status) Family history: other (Unable to obtain due to mental status) Medications and Allergies Allergies Allergy/AdvReac Type Severity Reaction Status Date / Time metformin Allergy Headache Verified 02/13/18 02:33 Home Medications Medication Instructions Recorded Confirmed Last Taken Type Clopidogrel [Plavix] 75 mg PO QDAY 04/14/16 04/14/16 Unknown History Metoprolol Tartrate [Lopressor] 50 mg PO DAILY 04/14/16 04/14/16 Unknown History Simvastatin (Nf) [Zocor TAB] 20 mg PO QHS 04/14/16 04/14/16 Unknown History Tamsulosin [Flomax] 0.4 mg PO QDAY 04/14/16 04/14/16 Unknown History lisinopriL [Zestril TAB] 20 mg PO QDAY 04/14/16 04/14/16 Unknown History Xarelto 20 mg PO QDAY #7 04/15/16 Unknown Rx glipiZIDE [Glucotrol] 10 mg PO BID #60 tablet 04/15/16 Unknown Rx Tamsulosin [Flomax] 0.4 mg PO QDAY #20 cap 03/17/17 Unknown Rx traMADoL [Ultram] 50 mg PO Q6HR PRN #20 tablet 03/17/17 Unknown Rx Active Meds: Active Medications Acetaminophen (Acetaminophen 325 Mg Tab) 650 mg PO Q4H PRN PRN Reason: Pain MILD(1-3)/Fever >100.5/FERRARO Hydrocodone Bitart/Acetaminophen (Hydrocodone/Acetaminophen 5-325 Mg Tab) 2 each PO Q6H PRN PRN Reason: Pain, Moderate (4-6) Glipizide (Glipizide 5 Mg Tab) 10 mg PO BID [facility] Heparin Sodium (Porcine) (Heparin 5,000 Unit/1 Ml Vial) 5,000 unit SUB-Q Q8HR [facility] Last Admin: 12/10/21 14:29 Dose: 5,000 unit Vancomycin HCl 1,500 mg/ (Sodium Chloride) 530 mls @ 333.333 mls/hr IV Q12H [facility] Piperacillin Sod/Tazobactam Sod (Zosyn/Ns 4.5gm/100ml) 4.5 gm in 100 mls @ 200 mls/hr IV Q6H [facility]; Protocol Last Admin: 12/10/21 12:50 Dose: 200 mls/hr Insulin Glargine (Insulin Glargine 100 Units/Ml) 10 units SUB-Q QHS [facility] Lisinopril (Lisinopril 20 Mg Tab) 20 mg PO QDAY [facility] Metoprolol Tartrate (Metoprolol Tartrate 50 Mg Tab) 50 mg PO DAILY [facility] Morphine Sulfate (Morphine 4 Mg/1 Ml Inj) 2 mg IV Q4H PRN PRN Reason: Pain , Severe (7-10) Ondansetron HCl (Ondansetron 4 Mg/2 Ml Inj) 4 mg IV Q8H PRN PRN Reason: Nausea And Vomiting Pravastatin Sodium (Pravastatin 40 Mg Tab) 40 mg PO QHS [facility] Sodium Chloride (Sodium Chloride 0.9% 10 Ml Flush Syringe) 10 ml IV BID [facility] Sodium Chloride (Sodium Chloride 0.9% 10 Ml Flush Syringe) 10 ml IV PRN PRN PRN Reason: LINE FLUSH Tamsulosin HCl (Tamsulosin 0.4 Mg Cap) 0.4 mg PO QDAY [facility] Review of Systems All systems: negative - Muskuloskeletal left: foot pain, foot swelling Exam Vital Signs Temp Pulse Resp BP Pulse Ox 97.7 F 93 H 18 180/70 96 12/10/21 05:50 12/10/21 05:50 12/10/21 05:50 12/10/21 05:50 12/10/21 05:50 - General physical appearance Positive: well developed, no distress, no pain - Eyes Positive: other (right eye glaucoma) - ENT Positive: no hearing loss - Respiratory Positive: normal expansion, normal respiratory effort - Cardiovascular Heart Sounds: Present: S1 & S2 - Extremities Extremity abnormal: other (Left foot with generalized edema and hyperpigmentation. 2 open wounds, 2 x 3 cm on the top of the foot with intact skin graft. Larger wound lateral foot measuring approximately 6 x 7 cm with breakdown of skin graft and healthy granulation tissue. No active drainage, fluctuance, or foul order) - Abdomen Abdomen: Present: soft. Absent: tender - Neurologic Neurologic: alert and oriented to time, place and person Results - Labs 12/10/21 06:53 12/10/21 06:53 Abnormal lab results 12/10/21 12/10/21 12/10/21 Range/Units 06:53 06:53 06:53 MCV 82 L (84-94) fl MCH 26 L (28-32) pg MCHC 31 L (32-34) % RDW 19.1 H (13.2-15.2) % Seg Neutrophils % 73.7 H (40.0-70.0) % VBG pH 7.455 H (7.320-7.420) Sodium 135 L (137-145) mmol/L Chloride 91.2 L (98-107) mmol/L Carbon Dioxide 31 H (22-30) mmol/L Glucose 534 H* (75-100) mg/dL ALT < 5 L (7-56) units/L Total Creatine Kinase 32 L (55-170) units/L Troponin T (0.00-0.029) ng/mL C-Reactive Protein (0.00-1.30) mg/dL Total Protein 9.5 H (6.3-8.2) g/dL Albumin 3.3 L (3.9-5) g/dL Urine WBC (Auto) (0.0-6.0) /HPF 12/10/21 12/10/21 Range/Units 06:53 Unknown MCV (84-94) fl MCH (28-32) pg MCHC (32-34) % RDW (13.2-15.2) % Seg Neutrophils % (40.0-70.0) % VBG pH (7.320-7.420) Sodium (137-145) mmol/L Chloride (98-107) mmol/L Carbon Dioxide (22-30) mmol/L Glucose (75-100) mg/dL ALT (7-56) units/L Total Creatine Kinase (55-170) units/L Troponin T 0.034 H (0.00-0.029) ng/mL C-Reactive Protein 8.10 H (0.00-1.30) mg/dL Total Protein (6.3-8.2) g/dL Albumin (3.9-5) g/dL Urine WBC (Auto) > 182.0 H (0.0-6.0) /HPF Diabetes panel 12/10/21 12/10/21 Range/Units 06:53 06:53 Sodium 135 L (137-145) mmol/L Potassium 3.8 (3.6-5.0) mmol/L Chloride 91.2 L (98-107) mmol/L Carbon Dioxide 31 H (22-30) mmol/L BUN 15 (9-20) mg/dL Creatinine 1.0 (0.8-1.3) mg/dL Glucose 534 H* (75-100) mg/dL Calcium 10.2 (8.4-10.2) mg/dL AST 10 (5-40) units/L ALT < 5 L (7-56) units/L Alkaline Phosphatase 117 (35-129) units/L Total Protein 9.5 H (6.3-8.2) g/dL Albumin 3.3 L (3.9-5) g/dL Triglycerides 134 (2-149) mg/dL HDL Cholesterol 41 (40-59) mg/dL Calcium panel 12/10/21 Range/Units 06:53 Calcium 10.2 (8.4-10.2) mg/dL Albumin 3.3 L (3.9-5) g/dL Pituitary panel 12/10/21 Range/Units 06:53 Sodium 135 L (137-145) mmol/L Potassium 3.8 (3.6-5.0) mmol/L Chloride 91.2 L (98-107) mmol/L Carbon Dioxide 31 H (22-30) mmol/L BUN 15 (9-20) mg/dL Creatinine 1.0 (0.8-1.3) mg/dL Glucose 534 H* (75-100) mg/dL Calcium 10.2 (8.4-10.2) mg/dL Adrenal panel 12/10/21 Range/Units 06:53 Sodium 135 L (137-145) mmol/L Potassium 3.8 (3.6-5.0) mmol/L Chloride 91.2 L (98-107) mmol/L Carbon Dioxide 31 H (22-30) mmol/L BUN 15 (9-20) mg/dL Creatinine 1.0 (0.8-1.3) mg/dL Glucose 534 H* (75-100) mg/dL Calcium 10.2 (8.4-10.2) mg/dL Total Bilirubin 0.30 (0.1-1.2) mg/dL AST 10 (5-40) units/L ALT < 5 L (7-56) units/L Alkaline Phosphatase 117 (35-129) units/L Total Protein 9.5 H (6.3-8.2) g/dL Albumin 3.3 L (3.9-5) g/dL Assessment and Plan 66-year-old male about 4 weeks status post left fifth toe amputation with open nonclinically infected postoperative wounds. Patient is afebrile and stable. Wounds being treated with skin grafting by outside surgeon. No acute surgical intervention warranted at this time. Recommend continuing Xeroform gauze followed by dry Kerlix. Only change outer Kerlix gauze if it gets soiled. Recommend patient follow-up with surgeon at [facility] upon discharge.
[2021-12-10] MEDS ORDERED: PRAVASTATIN 40 MG TAB PO SCH (22:00)
[2021-12-10] MEDS ORDERED: INSULIN GLARGINE 100 UNITS/ML SUB-Q SCH (22:00)
[2021-12-10] MEDS ORDERED: NON-FORMULARY EACH (Simvastatin (Nf) 20 MG Tablet) PO SCH (22:00)
[2021-12-10] MEDS ORDERED: glipiZIDE 5 MG TAB PO SCH (22:00)
[2021-12-10] MEDS: VANCOMYCIN 1,500 MG in SODIUM CHLORIDE 0.9% 500 ML 500 ML IV SCH (22:23)
[2021-12-10] MEDS: HYDROcodone/ACETAMINOPHEN 5-325 MG TAB PO PRN (22:47)
[2021-12-11] MEDS: HEPARIN 5,000 UNIT/1 ML VIAL SUB-Q SCH ×2 (06:17→14:24)
[2021-12-11] MEDS: PIPERACIL/TAZOBACTA 4.5/NS 100 4.5 GM/100 ML VIAL IV SCH ×2 (06:19→11:24)
[2021-12-11 07:16] LABS: BUN/Creatinine Ratio 14; Blood Urea Nitrogen 14 mg/dL (9-20); Calcium 8.8 mg/dL (8.4-10.2); Hemolysis Index 113
[2021-12-11 07:46] LABS: Basophils % (Auto) 0.4 % (0.0-1.8); Eosinophils % (Auto) 0.2 % (0.0-4.3); Hematocrit 33.3 % (35.5-45.6); Hemoglobin 10.7 gm/dl (11.8-15.2); Lymphocytes # (Auto) 1.4 K/mm3 (1.2-5.4); Lymphocytes % (Auto) 14.3 % (13.4-35.0); Mean Corpuscular HGB Conc 32 % (32-34); Mean Corpuscular Volume 82 fl (84-94); Monocytes # (Auto) 0.8 K/mm3 (0.0-0.8); Monocytes % (Auto) 8.8 % (0.0-7.3); Platelet Count 345 K/mm3 (140-440); Red Blood Count 4.07 M/mm3 (3.65-5.03); Red Cell Distribution Width 19.1 % (13.2-15.2)
--- NOTE | 2021-12-11 07:51 | Discharge Summary ---
Providers - Providers Date of Admission: 12/10/21 10:03 Date of discharge: 12/11/21 Attending physician: CLEO LIZAMA 12/10/21 08:18 Consult to Physician [CONS] Urgent Comment: Consulting Provider: SOHAN BARBER Physician Instructions: Reason For Exam: post op osteomyelitis 12/10/21 10:02 Consult to Physician [CONS] Routine Comment: Consulting Provider: ISADORA CUELLAR Physician Instructions: Reason For Exam: left foot abscess Consult to Physician [CONS] Routine Comment: Consulting Provider: SOHAN BARBER Physician Instructions: Reason For Exam: left foot abscess Primary care physician: JOB PLACEMENT COUNSELOR Hospitalization Reason for admission: hyperglycemia Condition: Fair Hospital course: 66-year-old male with past medical history of peripheral artery disease, hypertension, diabetes mellitus type II, hypertension, high cholesterol, DVT, right transmetatarsal amputation, left foot surgery presumably at [facility], currently with surgical dressing in place presents to the ER with a complaint of weakness and frequency. Surgery consulted to evaluate left foot wound. Pt says he had left fifth toe amputation surgery at [facility] in [place] a month ago and has seen his surgeon 3 times since then, with the last evaluation by him about 4 days ago. Patient says that he had artificial skin grafting done about a week and a half ago, and when the doctor saw him last week he says that it was healing well. Patient says he would like to continue to see that surgeon for further care. Patient denies any pain when the wound is not being manipulated. Initially on admission, patient was noted to have altered mentation which has now resolved. The patient was admitted with diagnosis of severe sepsis, UTI, diabetes mellitus type 2 uncontrolled, toxic metabolic encephalopathy, peripheral vascular disease, accelerated hypertension, and hyperlipidemia. The patient was admitted with IV antibiotics for the UTI. The patient is back to baseline mental status. Patient's initial blood cultures were found to be negative. BG is much better controlled. Patient is felt to receive maximal hospital benefit and will be discharged home. Dedicated discharge time 35 minutes Disposition: 01 HOME / SELF CARE / HOMELESS Final Discharge Diagnosis (Prints w/discharge instructions): Severe sepsis. Patient meets criteria given the tachycardia, tachypnea and diagnosis of UTI along with altered mentation. Diabetes mellitus type 2, uncontrolled. UTI. Elevated troponin. Type II NV from sepsis. Toxic metabolic encephalopathy. Peripheral vascular disease. Accelerated hypertension. Hyperlipidemia. History of DVT Core Measure Documentation - Palliative Care Palliative Care/ Comfort Measures: Not Applicable - Core Measures Any of the following diagnoses?: none Exam - Constitutional Vitals: Temp Pulse Resp BP Pulse Ox 97.7 F 80 20 175/93 100 12/11/21 05:32 12/11/21 05:32 12/11/21 05:32 12/11/21 05:32 12/11/21 05:32 General appearance: Present: no acute distress, well-nourished - EENT Eyes: Present: PERRL ENT: hearing intact, clear oral mucosa - Neck Neck: Present: supple, normal ROM - Respiratory Respiratory effort: normal Respiratory: bilateral: CTA - Cardiovascular Heart Sounds: Present: S1 & S2. Absent: rub, click - Extremities Extremities: pulses symmetrical, No edema Peripheral Pulses: within normal limits - Abdominal General gastrointestinal: Present: soft, non-tender, non-distended, normal bowel sounds Male genitourinary: Present: normal - Integumentary Integumentary: Present: clear, warm, dry - Musculoskeletal Musculoskeletal: gait normal, strength equal bilaterally - Psychiatric Psychiatric: appropriate mood/affect, intact judgment & insight - Neurologic Neurologic: CNII-XII intact, moves all extremities Plan Activity: advance as tolerated Weight Bearing Status: Weight Bear as Tolerated Diet: diabetic Wound: per your surgeon's advice Follow up with: PRIMARY CARE, [Primary Care Provider] - 7 Days Prescriptions: Tamsulosin [Flomax] 0.4 mg PO QDAY #30 cap glipiZIDE [Glucotrol] 10 mg PO BID #60 tablet HYDROcodone/APAP 5-325 [[place] 5-325 mg TAB] 2 each PO Q6H PRN #10 tablet PRN Reason: Pain, Moderate (4-6) Clopidogrel [Plavix] 75 mg PO QDAY #30 lisinopriL [Zestril TAB] 20 mg PO QDAY #30
[2021-12-11] MEDS ORDERED: glipiZIDE 5 MG TAB PO SCH (08:00)
[2021-12-11] MEDS ORDERED: LISINOPRIL 20 MG TAB PO SCH (10:00)
[2021-12-11] MEDS ORDERED: TAMSULOSIN 0.4 MG CAP PO SCH ×2 (10:00)
[2021-12-11] MEDS ORDERED: METOPROLOL TARTRATE 50 MG TAB PO SCH (10:00)
[2021-12-11] MEDS: HYDROcodone/ACETAMINOPHEN 5-325 MG TAB PO PRN (10:15)
[2021-12-11 12:13] VITALS: BP 188/98
[2021-12-11] MEDS: VANCOMYCIN 1,500 MG in SODIUM CHLORIDE 0.9% 500 ML 500 ML IV SCH (14:30)
--- NOTE | 2021-12-12 14:08 | Electrocardiograph Report ---
[facility] Test Date: 2021-12-10 Test Time: 06:57:51 Pat Name: AMRCIO GILLIS Department: Room: A366 Gender: M [employer] Manager: JOHN : 1955 Requested By: JOSSELINE NIEVES Order Number: [id number] Reading MD: Delta Ag Measurements Intervals [employer] Rate: 94 P: 57 CT: 135 QRS: -28 QRSD: 87 T: -29 QT: 377 QTc: 473 Interpretive Statements Sinus rhythm T wave abnormality, consider anterolateral ischemia No previous ECG available for comparison Electronically Signed On 12-12-2021 14:08:08 EDT by Delta Ag
== END 2021-12-11 16:45 | disposition home or self-care (01) | DRG 871 ==
LOC: ED 05:00 → 3A 10:03
PROVIDERS: ADMIT Hospitalist; ATTEND Hospitalist
DX: A41.9 Sepsis, unspecified organism (principal); G92.8 Other toxic encephalopathy; I21.A1 Myocardial infarction type 2; N39.0 Urinary tract infection, site not specified; L02.612 Cutaneous abscess of left foot; R65.20 Severe sepsis without septic shock; I11.0 Hypertensive heart disease with heart failure; I50.9 Heart failure, unspecified; J44.9 Chronic obstructive pulmonary disease, unspecified; E11.65 Type 2 diabetes mellitus with hyperglycemia; R06.82 Tachypnea, not elsewhere classified; E78.5 Hyperlipidemia, unspecified; E11.51 Type 2 diabetes mellitus with diabetic peripheral angiopathy without gangrene; Z20.822 Contact with and (suspected) exposure to COVID-19; Z86.718 Personal history of other venous thrombosis and embolism; Z95.5 Presence of coronary angioplasty implant and graft
CPT/HCPCS: 36415; 70450; 71045; 80048; 80053; 80061; 81001; 82140; 82550; 82805; 82962; 83735; 84484; 85025; 85610; 85652; 86140; 87040; 87086; 93005; G0378; Q0162; Q9967; J0696; J1644; J1815; J2543; J3370; J7030; J7040

== ENCOUNTER 2022-03-31 11:08 | Emergency (ER) | payer MEDICARE ==
[2022-03-31 11:19] VITALS: BP 130/76
--- NOTE | 2022-03-31 12:38 | Emergency Department Report ---
- General Chief Complaint: Extremity Problem,Nontraumatic Stated Complaint: WOUND CARE LT FOOT/RT KNEE PAIN Time Seen by Provider: 03/31/22 11:41 Source: patient, EMS Mode of arrival: Stretcher Limitations: No Limitations - History of Present Illness Initial Comments: 67-year-old black male with a past medical history of hypertension and diabetes presents to the emergency department requesting dressing change. He states that he called an ambulance service to transport him to his appointment with his log roper to have his foot dressing change and evaluation of his wound, but was told that his insurance did not cover it anymore so he decided to call 911 to come to the ER to have dressing change. He also states that his Nuñez catheter bag has been leaking. He denies fever, abdominal pain, weakness, malaise, or any urinary symptoms. Associated Symptoms: other (Requesting dressing change) - Related Data Home Medications Medication Instructions Recorded Confirmed Last Taken Metoprolol Tartrate [Lopressor] 50 mg PO DAILY 04/14/16 04/14/16 Unknown Simvastatin (Nf) [Zocor TAB] 20 mg PO QHS 04/14/16 04/14/16 Unknown Previous Rx's Medication Instructions Recorded Last Taken Type Xarelto 20 mg PO QDAY #7 04/15/16 Unknown Rx Tamsulosin [Flomax] 0.4 mg PO QDAY #20 cap 03/17/17 Unknown Rx traMADoL [Ultram 50 MG tab] 50 mg PO Q6HR PRN #20 tablet 03/17/17 Unknown Rx Clopidogrel [Plavix] 75 mg PO QDAY #30 12/11/21 Unknown Rx HYDROcodone/APAP 5-325 [[place] 2 each PO Q6H PRN #10 tablet 12/11/21 Unknown Rx 5-325 mg TAB] Tamsulosin [Flomax] 0.4 mg PO QDAY #30 cap 12/11/21 Unknown Rx glipiZIDE [Glucotrol] 10 mg PO BID #60 tablet 12/11/21 Unknown Rx levoFLOXacin [Levaquin TAB] 500 mg PO QDAY 5 Days #5 tablet 12/11/21 Unknown Rx lisinopriL [Zestril TAB] 20 mg PO QDAY #30 12/11/21 Unknown Rx Allergies Allergy/AdvReac Type Severity Reaction Status Date / Time metformin Allergy Headache Verified 03/31/22 11:20 ED Review of Systems ROS: Stated complaint: WOUND CARE LT FOOT/RT KNEE PAIN Other details as noted in HPI Comment: All other systems reviewed and negative Constitutional: denies: chills, fever, malaise, weakness Respiratory: denies: shortness of breath Cardiovascular: denies: chest pain, palpitations Gastrointestinal: denies: abdominal pain, nausea, vomiting Musculoskeletal: denies: back pain Neurological: denies: headache, weakness ED Past Medical Hx - Past Medical History Hx Hypertension: Yes Hx Heart Attack/AMI: Yes Hx Congestive Heart Failure: Yes Hx Diabetes: Yes Hx Deep Vein Thrombosis: Yes Hx Asthma: Yes Hx COPD: Yes Hx HIV: No Additional medical history: Glaucoma, DVT Right Calf - Surgical History Hx Coronary Stent: Yes (for blood clot in heart valve) Additional Surgical History: Coronary stent 2 years ago, right leg surgery; right knee replacement and right hip replacement - Social History Smoking Status: Never Smoker - Medications Home Medications: Home Medications Medication Instructions Recorded Confirmed Last Taken Type Metoprolol Tartrate [Lopressor] 50 mg PO DAILY 04/14/16 04/14/16 Unknown History Simvastatin (Nf) [Zocor TAB] 20 mg PO QHS 04/14/16 04/14/16 Unknown History Xarelto 20 mg PO QDAY #7 04/15/16 Unknown Rx Tamsulosin [Flomax] 0.4 mg PO QDAY #20 cap 03/17/17 Unknown Rx traMADoL [Ultram 50 MG tab] 50 mg PO Q6HR PRN #20 tablet 03/17/17 Unknown Rx Clopidogrel [Plavix] 75 mg PO QDAY #30 12/11/21 Unknown Rx HYDROcodone/APAP 5-325 [[place] 2 each PO Q6H PRN #10 tablet 12/11/21 Unknown Rx 5-325 mg TAB] Tamsulosin [Flomax] 0.4 mg PO QDAY #30 cap 12/11/21 Unknown Rx glipiZIDE [Glucotrol] 10 mg PO BID #60 tablet 12/11/21 Unknown Rx levoFLOXacin [Levaquin TAB] 500 mg PO QDAY 5 Days #5 tablet 12/11/21 Unknown Rx lisinopriL [Zestril TAB] 20 mg PO QDAY #30 12/11/21 Unknown Rx ED Physical Exam - General Limitations: No Limitations General appearance: alert, in no apparent distress - Head Head exam: Present: atraumatic, normocephalic - Eye Eye exam: Present: normal appearance. Absent: conjunctival injection - Neck Neck exam: Present: normal inspection - Respiratory Respiratory exam: Present: normal lung sounds bilaterally. Absent: respiratory distress, wheezes, rhonchi, stridor, chest wall tenderness - Cardiovascular Cardiovascular Exam: Present: regular rate, normal heart sounds - GI/Abdominal GI/Abdominal exam: Present: soft, normal bowel sounds. Absent: distended, tenderness - External exam: Present: other (Indwelling Nuñez catheter in place. Collection bag noted to be leaking and patient has placed inside of all plastic bag) - Extremities Exam Extremities exam: Absent: normal inspection (Left foot dressing intact but soiled.) - Back Exam Back exam: Present: normal inspection - Neurological Exam Neurological exam: Present: alert, oriented X3 - Psychiatric Psychiatric exam: Present: normal affect, normal mood - Skin Skin exam: Present: warm, dry, normal color ED Course Vital Signs 03/31/22 11:12 Temperature 98.0 F Pulse Rate 82 Respiratory 16 Rate Blood Pressure 130/76 [Left] O2 Sat by Pulse 96 Oximetry - Procedure Description Procedures done: Left foot dressing change: Old dressing removed, and patient noted to have healing wound to the top of the foot inside of the foot on the left side. Wound noted to be clean and dry with pink healing tissue noted in the middle. No purulent drainage noted and no erythema noted. Wound cleaned with normal saline then Xeroform, gauze, and Kerlix was placed. Patient placed back in boot that he arrived in. Patient tolerated well. - Catheter Insertion (Urinary) Indications: other (Nuñez catheter collection bag leaking) Prophylactic Antibiotics Given: No Bladder Scan/US before Catherization: No Additional Comments: Catheter was placed per urology, so Nuñez catheter left intact and tubing and bag only was replaced per request of urology office who was on the phone with the patient while I was in the room. Drainage noted in bag after tubing and bag was replaced. No leakage noted. Patient tolerated well. ED Medical Decision Making - Medical Decision Making 67-year-old black male with a past medical history of hypertension and diabetes presents to the emergency department requesting dressing change. He states that he called an ambulance service to transport him to his appointment with his log roper to have his foot dressing change and evaluation of his wound, but was told that his insurance did not cover it anymore so he decided to call 911 to come to the ER to have dressing change. He also states that his Nuñez catheter bag has been leaking. He denies fever, abdominal pain, weakness, malaise, or any urinary symptoms. Physical exam unremarkable. Dressing and Nuñez catheter change per my procedure notes. Patient discharged home and advised to follow-up with podiatry and urology as planned. He is advised to return to the emergency department as needed. He verbalizes understanding of and agreement with plan of care. Critical care attestation.: If time is entered above; I have spent that time in minutes in the direct care of this critically ill patient, excluding procedure time. ED Disposition Clinical Impression: Encounter for change of dressing Nuñez catheter problem Qualifiers: Encounter type: initial encounter Qualified Code(s): T83.9XXA - Unspecified complication of genitourinary prosthetic device, implant and graft, initial encounter Disposition: HOME / SELF CARE / HOMELESS Is pt being admited?: No Does the pt Need Aspirin: No Condition: Stable Instructions: Indwelling Urinary Catheter Care, Adult, [id number], How to Change Your Wound Dressing, [id number] Additional Instructions: Follow-up with urology on as planned. Reschedule appointment with podiatry as planned and do dressing changes as previously prescribed by podiatry and wound doctor. Return to the emergency department as needed. Referrals: PRIMARY CAREMD [Primary Care Provider] - 3-5 Days Time of Disposition: 12:38
== END 2022-03-31 14:23 | disposition home or self-care (01) ==
LOC: ED 11:08
DX: Z48.00 Encounter for change or removal of nonsurgical wound dressing (principal); Z46.6 Encounter for fitting and adjustment of urinary device; I11.0 Hypertensive heart disease with heart failure; I50.9 Heart failure, unspecified; I21.9 Acute myocardial infarction, unspecified; E11.9 Type 2 diabetes mellitus without complications; J45.909 Unspecified asthma, uncomplicated; Z86.718 Personal history of other venous thrombosis and embolism; Z98.890 Other specified postprocedural states; Z91.09 Other allergy status, other than to drugs and biological substances; Z79.899 Other long term (current) drug therapy
CPT/HCPCS: 51702; 99283